=== PATIENT | female | born 1955 | race Caucasian/White ===

== ENCOUNTER 2019-10-18 11:17 | Outpatient (REF) | payer MEDICARE, SELFPAY ==
[2019-10-18 21:25] LABS: HGB 14.2 g/dL (12.0-15.5); Mean Corp. HGB Concentration 33.8 g/dL (32.0-36.0); Mean Corpuscular Hemoglobin 30.5 pg (27.0-33.0); Mean Corpuscular Volume 90.3 fL (80-95); Mean Platelet Volume 9.9 fL (8.0-11.0); Platelet Count 299 x1000/uL (130-400); RBC 4.65 m/cumm (4.00-5.20); RBC Distribution Width 13.8 % (11.7-14.6); White Blood Cell Count 5.02 k/cumm (4.4-10.8)
[2019-10-18 22:03] LABS: ALT 42 U/L (14-59); AST 28 U/L (15-37); Alkaline Phosphatase 82 U/L (46-116); Anion Gap 11.3 mmol/L (3-11); BUN 12 mg/dL (7-18); Bilirubin, Total 0.5 mg/dL (0.2-1.0); CO2 25.7 mmol/L (21.0-32.0); CREATININE 0.74 mg/dL (0.55-1.02); Calcium 9.3 mg/dL (8.5-10.1); Chloride 104 mmol/L (98-107); Glucose 93 mg/dL (74-106); Potassium 4.1 mmol/L (3.5-5.1); Sodium 141 mmol/L (136-145); TSH 1.63 uIU/mL (0.36-3.74); Total Protein 6.8 g/dL (6.4-8.2); Vitamin B12 1613 pg/mL (193-986)
== END 2019-10-18 11:37 ==
LOC: NCHCN 11:17
PROVIDERS: PCP Family Medicine; Visit Provider Registered Nurse
DX: F41.9 Anxiety disorder, unspecified (principal); R79.89 Other specified abnormal findings of blood chemistry
CPT/HCPCS: 80053; 85027; 82607; 84443

== ENCOUNTER 2023-04-17 14:23 | Outpatient (REF) | payer MEDICARE, SELFPAY ==
[2023-04-17 16:15] LABS: Abs Immature Grans 0.02 10^3/uL (0.0-0.06); Absolute Basophil Count 0.05 10^3/uL (0.0-0.2); Absolute Eosinophil Count 0.15 10^3/uL (0.0-0.7); Absolute Lymphocyte Count 1.69 10^3/uL (1.2-3.4); Absolute Monocyte Count 0.44 10^3/uL (0.1-0.8); Basophils % 1.2; Eosinophils % 3.5; HCT 38.7 % (36.0-46.0); HGB 13.1 g/dL (11.2-15.7); Immature Grans % 0.5; Lymphocytes % 39.4; MCH 30.8 pg (27.0-33.0); MCHC 33.9 % (32.0-36.0); MCV 91 fL (80-95); Monocytes % 10.3; Neutrophils % 45.1; Platelet Count 281 10^3/uL (130-400); RBC 4.26 10^6/uL (3.93-5.22); RDW 12.9 % (11.7-14.6); RDW-SD 42.9 fL; WBC 4.29 10^3/uL (4.4-10.8)
[2023-04-17 16:22] LABS: Absolute Neutrophil Count 1.93 10^3/uL (1.2-6.7)
[2023-04-17 16:44] LABS: ALT 42 U/L (14-59); AST 29 U/L (15-37); Albumin 3.5 g/dL (3.4-5.0); Alkaline Phosphatase 87 U/L (46-116); Anion Gap 6.1 mmol/L (3-11); BUN 12 mg/dL (7-18); Bilirubin, Total 0.3 mg/dL (0.2-1.0); CO2 25.9 mmol/L (21.0-32.0); CREATININE 0.7 mg/dL (0.55-1.02); Calcium 8.8 mg/dL (8.5-10.1); Chloride 99 mmol/L (98-107); Cholesterol 221 mg/dL (<200); Estimated GFR 92.98 (mL/min/1.73m2); Glucose 100 mg/dL (74-106); HDL Cholesterol 113 mg/dL (40-60); Potassium 4.2 mmol/L (3.5-5.1); Sodium 131 mmol/L (136-145); TSH (W/Ref FT4) 2.05 uIU/mL (0.36-3.74); Total Protein 6.4 g/dL (6.4-8.2)
[2023-04-17 16:49] LABS: Triglyceride <25 mg/dL (<150)
[2023-04-17 17:00] LABS: LDL CHOLESTEROL 93 mg/dL (<100)
== END 2023-04-17 14:24 | disposition home or self-care (01) ==
LOC: NCHCN 14:23
PROVIDERS: PCP Family Medicine; Visit Provider Family Medicine
DX: R53.83 Other fatigue (principal); M79.10 Myalgia, unspecified site; R42 Dizziness and giddiness; F41.8 Other specified anxiety disorders; E78.5 Hyperlipidemia, unspecified
CPT/HCPCS: 80053; 80061; 83721; 84443; 85025

== ENCOUNTER 2023-10-30 15:43 | Outpatient (REF) | payer MEDICARE, SELFPAY ==
--- OUTSIDE RECORDS SUMMARY | 2023-10-30 15:51 | XMS_ITS | CCD ---
Author Name Unknown Address [address] [place] [id number] Organization Unknown Address [address] [place], [place] [id number] Care Team Providers Care Brake Shoe Rebuilder Name Role Phone CHRISTIAN CUELLO Attending Physician [phone] CHRISTIAN CUELLO Rounding (Secondary) Physician [phone] Vital Signs Unknown or Not Available. Allergies Unknown or Not Available. Procedures Unknown or Not Available. History of Immunizations Unknown or Not Available. Problems Unknown or Not Available. Results Unknown or Not Available. Active Medications Unknown or Not Available. Medications Administered During Visit Unknown or Not Available. Encounters Encounter Diagnosis Diagnosis Code Start Date Idiopathic osteoarthritis [id number] 2022 Social History Smoking Status Code Start Date End Date Never smoker [id number] Patient Decision Aids Unknown or Not Available. Discharge Instructions You were admitted to [facility] on 04/21/2023 00:00 with a principal diagnosis of Unilateral primary osteoarthritis, left hip You were discharged from [facility] on 04/21/2023 00:00 Should you have any questions prior to discharge, please contact a member of your healthcare team. If you have left the hospital and have any questions, please contact your primary care physician. Chief Complaint and Reason For Visit Unknown or Not Available. Function Status Unknown or Not Available. Plan of Care Unknown or Not Available. Referral/Transition of Care Unknown or Not Available.
--- OUTSIDE RECORDS SUMMARY | 2023-10-30 15:51 | XMS_ITS | CCD ---
Author Name Unknown Address [address] [place] [address] [id number] Organization Unknown Address [address] [place], [place] [id number] Care Team Providers Care Optical Engineering Technician Name Role Phone CHRISTAIN CUELLO Attending Physician [phone] Vital Signs Unknown or Not Available. Allergies Unknown or Not Available. Procedures Procedure Code Procedure Type Date Arthrocentesis Aspir&/[place] [address] CPT 05/01/2023 History of Immunizations Unknown or Not Available. Problems Unknown or Not Available. Results Unknown or Not Available. Active Medications Unknown or Not Available. Medications Administered During Visit Unknown or Not Available. Encounters Encounter Diagnosis Diagnosis Code Start Date Unilateral primary osteoarthritis, left hip M161 2 05/01/2023 Social History Smoking Status Code Start Date End Date Never smoker [id number] Patient Decision Aids Unknown or Not Available. Discharge Instructions You were admitted to [facility] on 05/01/2023 07:08 with a principal diagnosis of Unilateral primary osteoarthritis, left hip You had the following procedures done:Arthrocentesis Aspir&/Inj Major Jt/Bursa w/o US You were discharged from [facility] on 05/01/2023 07:08 Should you have any questions prior to [...]
--- OUTSIDE RECORDS SUMMARY | 2023-10-30 15:51 | XMS_ITS | CCD ---
Author Name Unknown Address [address] [place] [id number] Organization Unknown Address [address] [place], [place] [id number] Care Team Providers Care Government Documents Librarian Name Role Phone CHRISTIAN CUELLO Attending Physician [phone] Vital Signs Unknown or Not Available. Allergies Unknown or Not Available. Procedures Procedure Code Procedure Type Date Arthrocentesis Aspir&/[place] [address] CPT 09/09/2023 History of Immunizations Unknown or Not Available. Problems Unknown or Not Available. Results Unknown or Not Available. Active Medications Unknown or Not Available. Medications Administered During Visit Unknown or Not Available. Encounters Encounter Diagnosis Diagnosis Code Start Date Unilateral primary osteoarthritis, left hip M161 2 09/09/2023 Social History Smoking Status Code Start Date End Date Never smoker [id number] Patient Decision Aids Unknown or Not Available. Discharge Instructions You were admitted to on 09/09/2023 07:20 with a principal diagnosis of Unilateral primary osteoarthritis, left hip You had the following procedures done:Arthrocentesis Aspir&/Inj Major Jt/Bursa w/o US You were discharged from on 09/09/2023 07:20 Should you have any questions prior to [...]
--- OUTSIDE RECORDS SUMMARY | 2023-10-30 15:51 | XMS_ITS | CCD ---
Author Name Unknown Address [address] [place] [id number] Organization Unknown Address [address] [place], [place] [phone] Care Team Providers Care Cnc Machine Setter Name Role Phone VALERIY GRIMALDO Attending Physician [phone] VALERIY GRIMALDO Rounding (Secondary) Physici an [phone] Vital Signs Unknown or Not Available. Allergies Unknown or Not Available. Procedures Unknown or Not Available. History of Immunizations Unknown or Not Available. Problems Unknown or Not Available. Results Unknown or Not Available. Active Medications Unknown or Not Available. Medications Administered During Visit Unknown or Not Available. Encounters Encounter Diagnosis Diagnosis Code Start Date Pain in right shoulder [id number] 3 Social History Smoking Status Code Start Date End Date Never smoker [id number] Patient Decision Aids Unknown or Not Available. Discharge Instructions You were admitted to [facility] on 04/29/2023 11:59 with a principal diagnosis of Pain in right shoulder You were discharged from [facility] on 04/29/2023 00:00 Should you have any questions prior [...]
--- OUTSIDE RECORDS SUMMARY | 2023-10-30 15:51 | XMS_ITS | CCD ---
Author Name Unknown Address [address] [place] [address] [id number] Organization Unknown Address [address] [place] [address] [phone] Care Team Providers Care Calender Feeder Name Role Phone JOSE DOBBS Attending Physician [phone] Vital Signs Unknown or Not Available. Allergies Unknown or Not Available. Procedures Unknown or Not Available. History of Immunizations Unknown or Not Available. Problems Unknown or Not Available. Results Unknown or Not Available. Active Medications Unknown or Not Available. Medications Administered During Visit Unknown or Not Available. Encounters Encounter Diagnosis Diagnosis Code Start Date Unilateral primary osteoarthritis, left hip M161 2 12/31/2022 Social History Smoking Status Code Start Date End Date Never smoker [id number] Patient Decision Aids Unknown or Not Available. Discharge Instructions You were admitted to [facility] on 12/31/2022 09:48 with a principal diagnosis of Unilateral primary osteoarthritis, left hip You were discharged from [facility] on 12/31/2022 09:48 Should you have any questions prior to discharge, please contact a member of your healthcare team. If you have left the hospital and have any questions, please contact your primary care physician. Chief Complaint and Reason For Visit Chief Complaint Date of Onset LT HIP PAIN Function Status Unknown or Not Available. Plan of Care Unknown or Not Available. Referral/Transition of Care Unknown or Not Available.
--- OUTSIDE RECORDS SUMMARY | 2023-10-30 15:52 | XMS_ITS | CCD ---
Author Name Unknown Address [address] [place] [address] [id number] Organization Unknown Address [address] [place], [place] [phone] Care Team Providers Care Abstract Checker Name Role Phone CHRISTIAN CUELLO Attending Physician [phone] CHRISTIAN CUELLO Rounding (Secondary) Physician [phone] Vital Signs Unknown or Not Available. Allergies Unknown or Not Available. Procedures Unknown or Not Available. History of Immunizations Unknown or Not Available. Problems Unknown or Not Available. Results Unknown or Not Available. Active Medications Unknown or Not Available. Medications Administered During Visit Unknown or Not Available. Encounters Encounter Diagnosis Diagnosis Code Start Date Idiopathic osteoarthritis [id number] 2022 Social History Smoking Status Code Start Date End Date Never smoker [id number] Patient Decision Aids Unknown or Not Available. Discharge Instructions You were admitted to [facility] on 10/15/2023 13:24 with a principal diagnosis of Unilateral primary osteoarthritis, left hip You were discharged from [facility] on 10/15/2023 13:24 Should you have any questions prior to [...]
== END 2023-10-30 15:44 | disposition home or self-care (01) ==
LOC: NCHCN 15:43
PROVIDERS: PCP Family Medicine; Visit Provider Internal Medicine
DX: R39.89 Other symptoms and signs involving the genitourinary system (principal); R82.998 Other abnormal findings in urine
CPT/HCPCS: 87077; 87086; 87186

== ENCOUNTER 2024-02-24 18:26 | Outpatient (REF) | payer MEDICARE, SELFPAY ==
[2024-02-24 21:28] LABS: Abs Immature Grans 0.01 10^3/uL (0.0-0.06); Absolute Basophil Count 0.06 10^3/uL (0.0-0.2); Absolute Eosinophil Count 0.38 10^3/uL (0.0-0.7); Absolute Lymphocyte Count 2.56 10^3/uL (1.2-3.4); Absolute Monocyte Count 0.52 10^3/uL (0.1-0.8); Absolute Neutrophil Count 2.37 10^3/uL (1.2-6.7); Eosinophils % 6.4; HCT 40.2 % (36.0-46.0); HGB 13.4 g/dL (11.2-15.7); Immature Grans % 0.2; Lymphocytes % 43.4; MCHC 33.3 % (32.0-36.0); MCV 93 fL (80-95); Monocytes % 8.8; Neutrophils % 40.2; Platelet Count 283 10^3/uL (130-400); RBC 4.32 10^6/uL (3.93-5.22); RDW 12.5 % (11.7-14.6); RDW-SD 43.2 fL
[2024-02-24 21:37] LABS: Anion Gap 12.6 mmol/L (3-11); BUN 12 mg/dL (7-18); CO2 24.4 mmol/L (21.0-32.0); CREATININE 0.7 mg/dL (0.55-1.02); Calcium 9.5 mg/dL (8.5-10.1); Chloride 102 mmol/L (98-107); Estimated GFR 92.41 (mL/min/1.73m2); Glucose 72 mg/dL (74-106); Potassium 3.6 mmol/L (3.5-5.1); Sodium 139 mmol/L (136-145)
== END 2024-02-24 18:27 | disposition home or self-care (01) ==
LOC: NCHCN 18:26
PROVIDERS: PCP Family Medicine; Visit Provider Internal Medicine
DX: R06.09 Other forms of dyspnea (principal)
CPT/HCPCS: 80048; 85025

== ENCOUNTER → 2025-03-29 11:26 | Outpatient (BNVA) | payer MEDICARE, SELFPAY | PROVIDERS: PCP Family Medicine; Referring Provider Family Medicine; Visit Provider Physical Therapy Assistant | DX: Z12.11 Encounter for screening for malignant neoplasm of colon (principal) | CPT/HCPCS: S0285 ==

== ENCOUNTER 2025-04-12 09:03 | Day surgery (SDC) | payer MEDICARE, SELFPAY ==
[2025-04-12 09:24] VITALS: BP 137/88; PULSE 89; RESP 16; TEMP 36.5; O2SAT 99
[2025-04-12] MEDS: Lactated Ringers 1,000 ML 80 ML IV (09:33)
--- NOTE | 2025-04-12 09:45 | W.COLOREPORT ---
Date of service: 04/12/25 Time of Service: 09:45 Colonoscopy Report Procedure Description: PROCEDURES PERFORMED: 1. Colonoscopy PREOPERATIVE DIAGNOSIS: Screening/positive Cologuard POSTOPERATIVE DIAGNOSIS: Mild sigmoid diverticular disease SURGEON: Ha Castillo MD INDICATION FOR PROCEDURE: 70-year-old woman had a colonoscopy 10 years ago that was normal. No family history of colon cancer. No symptoms. She did Cologuard but unfortunately that result was positive. FINDINGS: Normal terminal ileum, minimal/mild, scattered diverticular changes in the sigmoid colon. No polyps. No inflammation. No significant hemorrhoidal disease. SURVEILLANCE interval/FOLLOW-UP: 10 years. Should do another colonoscopy in 10 years if still healthy with good life expectancy at that time. SPECIMENS: None EBL: Minimal COMPLICATIONS: None QUALITY of prep: Excellent Procedure in detail: The patient gave written consent and was in agreement with the indications, the potential risks as well as the benefits of the procedure. They were taken to the endoscopy suite and laid in the left lateral decubitus position. A timeout was performed and anesthesia was administered which was tolerated well. I started the procedure. Digital rectal and visual examination was performed and grossly within normal limits. A well-lubricated flexible colonoscope was then introduced and passed without any notable difficulty all the way to the cecum identified by the ileocecal valve and the appendiceal orifice. Terminal ileum was intubated and looked normal. The scope was then slowly withdrawn with the above-noted findings. The patient tolerated the procedure well and was taken to the PACU in hemodynamically stable condition.
--- NOTE | 2025-04-12 09:45 | W.PM.DSUDISC ---
Date of service: 04/12/25 Discharge Plan Disposition Patient Disposition: Home Condition: Good Discharge Details Attending Provider: Benigno Castillo Primary Care Provider: Leonie Light Home Meds and New Rx's Prescriptions: No Action polyethylene glycol 3350 17 gram/dose powder 238 g PO ONCE Qty: 238 0RF Rx Instructions: take per colonoscopy instructions bisacodyl [Dulcolax (bisacodyl)] 5 mg tablet,delayed release (DR/EC) 5 mg PO ONCE Qty: 4 0RF Rx Instructions: take per colonoscopy instructions alpha lipoic acid 100 mg capsule 100 mg PO DAILY cod liver oil Oil 5 ml PO DAILY coQ10 (ubiquinol) [CoQmax Ubiquinol] 100 mg capsule 100 mg PO DAILY lorazepam 0.5 mg tablet 0.5 mg PO DAILY PRN propranolol 10 mg tablet 10 mg PO TID B Complex Plus Vitamin C 86-32-60-5-300 mg capsule 1 cap PO DAILY Rx Instructions: give with food (meal/snack) vitamin B73-wwmrc acid 500-400 mcg tablet 1 tab PO DAILY Rx Instructions: administer with a meal pyridoxine (vitamin B6) 10 mg tablet 10 mg PO BID turmeric 400 mg capsule 400 mg PO DAILY Discharge Instructions Additional Instructions: FINDINGS: No significant findings. No cancer. No polyps. Nothing to worry about. Some mild diverticular disease is present, this is extremely y common, benign and nothing needs to be done about it. Consider repeating another colonoscopy in 10 years at the age of 80, if you are still healthy with a good life expectancy at that time. Activity:: Activity as Tolerated Diet:: As Tolerated Discharge Orders Discharge Orders: Discharge Order (Routine); Ordered 04/12/25 Ordered By: Benigno Castillo
--- NOTE | 2025-04-12 09:55 | W.ANESPRE ---
General Info Date of Service Date Performed: 04/12/25 Height: 5 ft 6 in Weight: 52.1 kg Body Mass Index (BMI): 18.5 Surgical Procedure: Operation Date: 04/12/25 10:20 Proposed Procedure Side Surgeon p Colonoscopy Benigno Castillo MD Actual Procedure Side Surgeon p Colonoscopy Not Applicable Benigno Castillo MD Pre-Op Diagnosis Post-Op Diagnosis Screening colonoscopy, positive fecal DNA test result Meds Allergies and Home Medications Allergies Allergy/AdvReac Type Severity Reaction Status Date / Time No Known Allergies Allergy Verified 04/12/25 09:25 Home Medication ?Medication ?Instructions ?Recorded alpha lipoic acid 100 mg capsule 100 mg PO DAILY 03/09/25 coQ10 (ubiquinol) 100 mg capsule 100 mg PO DAILY 03/09/25 (CoQmax Ubiquinol) cod liver oil 5 ml PO DAILY 03/09/25 lorazepam 0.5 mg tablet 0.5 mg PO DAILY PRN 03/09/25 propranolol 10 mg tablet 10 mg PO TID 03/09/25 pyridoxine (vitamin B6) 10 mg 10 mg PO BID 03/09/25 tablet turmeric 400 mg capsule 400 mg PO DAILY 03/09/25 vitamin B comp and C no.3 15 mg-10 1 cap PO DAILY 03/09/25 mg-50 mg-5 mg-300 mg capsule (B Complex Plus Vitamin C) vitamin B12 500 mcg-folic acid 400 1 tab PO DAILY 03/09/25 mcg tablet bisacodyl 5 mg tablet,delayed 5 mg PO ONCE colonscopy bowel prep 03/29/25 release (Dulcolax (bisacodyl)) #4 tabs polyethylene glycol 3350 17 238 g PO ONCE colonoscopy prep 03/29/25 gram/dose oral powder #238 grams Current Visit Medications: Current Medications Generic Name Dose Route Start Last Admin Trade Name Freq PRN Reason Stop Dose Admin Ringer's Solution 1,000 mls @ 80 mls/hr 04/12/25 06:00 04/12/25 09:33 IV 04/12/25 23:59 80 mls/hr INFUSION JONATHAN Administration IV Miscellaneous Supplies 1 each 04/12/25 06:00 Iv Access IV 04/12/25 23:59 DIRECTED JONATHAN Sodium Chloride 0 ml 04/12/25 06:00 Normal Saline Flush 10 Ml Syr IV 04/12/25 23:59 PRN PRN Sodium Chloride 0 ml 05/28/25 06:00 Normal Saline 10 Ml Vial IJ 04/12/25 23:59 DIRECTED PRN Sterile Water 0 ml 04/12/25 06:00 Water,Injection,Sterile 10 Ml Vial IJ 04/12/25 23:59 DIRECTED PRN PFSH Active Problems Active Problems: Problem Status Onset Code Post-operative nausea and vomiting Acute R11.2, Z98.890 Anxiety disorder Acute F41.9 Positive colorectal cancer screening using Cologuard test Acute R19.5 Medical History Medical History Hx of breast cancer History of use of hearing aid in both ears Personal history of malignant neoplasm of breast Surgical History Surgical History History of total left hip arthroplasty Tobacco Smoking/Tobacco Use Status: Never Passive smoking exposure: No Alcohol Alcohol Intake: current Alcohol intake frequency: holidays/special occasions only Alcohol type: wine Substance Use Substance use: Never Substance use type: does not use Vital Signs and Lab Results Vital Signs Most Recent Vital Signs in EMR: Most Recent Vital Signs Temp Pulse Resp BP Pulse Ox 36.5 C 89 16 137/88 99 04/12/25 09:24 04/12/25 09:24 04/12/25 09:24 04/12/25 09:24 04/12/25 09:24 Lab Results Blood Type / Crossmatch: No Data to Display Complete Blood Count: No Data to Display Complete Metabolic Panel: No Data to Display Liver Function Panel: No Data to Display Coagulation Panel: No Data to Display Cardiac Panel: No Data to Display Arterial Blood Gas: No Data to Display Venous Blood Gas: No Data to Display Pancreas Panel: No Data to Display Thyroid Panel: No Data to Display Infectious Disease: No Data to Display Blood Cultures: No Data to Display Toxicology Panel: No Data to Display Anesthesia Assessment and Plan Anesthesia History Personal History: PONV Family History: No Family History of Anesthesia Complications Exercise Tolerance Exercise Tolerance: Metabolic Equivalents<4 Pertinent Negatives Pertinent Negatives: No Symptoms of GERD Cardiac & Pulmonary Exam Cardiac Exam: Normal S1/S2 Heart Sounds Pulmonary Exam: Clear Bilateral Breath Sounds Implantable Cardiac Device Does patient have a Pacemaker or an ICD?: No Airway Exam Known Difficult Airway: No Mallampati Class: 2 Mouth Opening: Normal (> 3cm) Thyromental Distance: Greater than 3 cm Neck Range of Motion: Full ROM Neck Circumference: Normal Teeth Condition: Normal Dentition ASA Classification ASA Score: ASA 2 Emergency Case?: No NPO Status NPO Status: NPO Clears >2 hours, Solids >8 hours Anesthesia Plan Resuscitation Status: Full Code Anesthesia Technique: General Anesthesia Airway Planned: Natural Airway Monitors Used: Standard Monitors
[2025-04-12 09:56] VITALS: BMI 18.5
[2025-04-12 10:33] VITALS: BP 96/64; PULSE 96; RESP 16; TEMP 36.4; O2SAT 97
--- NOTE | 2025-04-12 10:38 | W.ANESPOSTOP ---
Postoperative Evaluation Date, Time and Location Date Performed: 04/12/25 Time Performed: 10:39 Patient Location: Day Surgery Unit Vital Signs Most Recent Imported Vital Signs: Most Recent Vital Signs Temp Pulse Resp BP Pulse Ox 36.5 C 89 16 137/88 99 04/12/25 09:24 04/12/25 09:24 04/12/25 09:24 04/12/25 09:24 04/12/25 09:24 Pain Score Most Recent Pain Score: Most Recent Pain Score Pain Level 0 04/12/25 09:24 Assessment Mental Status: Awake (Alert & Oriented to Patient Baseline) Airway and Respiratory Function: Patent airway with normal (patient baseline) respiratory exam Cardiovascular Function: Hemodynamically Stable Hydration Status: Adequately Hydrated Nausea & Vomiting: No Nausea or Vomiting Pain: Pt. Denies Any Pain Peripheral Nerve Block: Patient did not receive a nerve block
[2025-04-12 10:58] VITALS: BP 131/81; PULSE 74; RESP 16; TEMP 36.4; O2SAT 99
--- NOTE | 2025-04-12 11:26 | NUR.NOTE ---
Nursing Note: Alber Oneil CRNA gave patient 4mg of zofran prior to discharge per patient request.
== END 2025-04-12 11:30 | disposition home or self-care (01) ==
PROVIDERS: PCP Internal Medicine; Visit Provider Student in an Organized Health Care Education/Training Program
PROC: 0DJD8ZZ Inspection of Lower Intestinal Tract, Via Natural or Artificial Opening Endoscopic (ICD-10-PCS; CPT 45378; principal; 2025-04-12 10:15)
DX: Z12.11 Encounter for screening for malignant neoplasm of colon (principal); K57.30 Diverticulosis of large intestine without perforation or abscess without bleeding
CPT/HCPCS: G0121; J2003; J2704